=== PATIENT | female | born 1955 | race African-American/Black ===

== ENCOUNTER 2018-03-07 12:37 | Emergency (ER) | payer OTHER ==
[~2018-03-07] VITALS: Ht 162.6 cm; Wt 65.0 kg
[2018-03-07] MEDS ORDERED: ACETAMINOPHEN WITH CODEINE 300/30MG TABLET PO ONE (15:30)
[2018-03-07 18:50] VITALS: BP 163/103
== END 2018-03-07 18:57 | disposition home or self-care (01) ==
LOC: ER 12:54
DX: S80.01XA Contusion of right knee, initial encounter (principal); S00.83XA Contusion of other part of head, initial encounter; V49.40XA Driver injured in collision with unspecified motor vehicles in traffic accident, initial encounter; W22.11XA Striking against or struck by driver side automobile airbag, initial encounter; Y93.89 Activity, other specified; Y92.410 Unspecified street and highway as the place of occurrence of the external cause; I11.9 Hypertensive heart disease without heart failure; Z72.0 Tobacco use
CPT/HCPCS: 70450; 70486; 73560; 99284; Z7610